=== PATIENT | male | born 1985 | race African-American/Black ===

== ENCOUNTER 2021-01-02 18:32 | Emergency (ER) | payer MEDICAID ==
[~2021-01-02] VITALS: Ht 188 cm; Wt 154.6 kg
[~2021-01-02 18:32] MED LIST: HYDR500 PO; INSLAN SQ; MIRT30 PO; PROTONIX PO; QUET100T PO; RIVA20TA PO
[2021-01-02 18:36] VITALS: BP 146/112
== END 2021-01-02 21:46 | disposition left against medical advice (07) ==
LOC: EMS 18:32
DX: F31.9 Bipolar disorder, unspecified (principal); E11.9 Type 2 diabetes mellitus without complications; Z79.4 Long term (current) use of insulin; Z79.899 Other long term (current) drug therapy
CPT/HCPCS: 93005; 99283; 99285; 71045-TC